=== PATIENT | female | born 1955 ===

== ENCOUNTER 2019-09-01 11:30 | Inpatient (IN) | payer OTHER ==
[~2019-09-01] VITALS: Ht 160 cm; Wt 90.7 kg
[2019-09-01] MEDS ORDERED: TENORMIN100 M1 PO (13:25)
[2019-09-01] MEDS ORDERED: CYMBALTA60 MG PO (13:25)
[2019-09-01] MEDS ORDERED: ENALAPRIL MALEA10 MG PO (13:25)
[2019-09-01] MEDS ORDERED: JANUVIA25 MG PO (13:26)
[2019-09-01] MEDS ORDERED: PLAVIX75 MG PO (13:26)
[2019-09-01] MEDS ORDERED: SIMVASTATIN40 MG PO (13:26)
[2019-09-01] MEDS ORDERED: LANTUS SOL100 UNIT/1 (13:27)
[2019-09-01] MEDS ORDERED: ULTRACET PO (13:27)
[2019-09-01] MEDS ORDERED: BAYER THERAPY325 MG PO (13:27)
[2019-09-07] MEDS ORDERED: METFORMIN HCL500 M4 PO (09:41)
[2019-09-07] MEDS ORDERED: JANUVIA50 MG PO (09:42)
[2019-09-07] MEDS ORDERED: SERTRALINE HCL50 MG PO (09:42)
[2019-09-07] MEDS ORDERED: DIAZEPAM10 MG PO (09:45)
[2019-09-09] MEDS ORDERED: BACTRIM DS TAB1 EACH PO (06:49)
[2019-09-09] MEDS ORDERED: INTEGRA PLUS C1 EACH PO (06:49)
[2019-09-09] MEDS ORDERED: XARELTO10 MG PO (06:49)
[2019-09-09] MEDS ORDERED: ULTRACET PO (06:49)
== END 2019-09-09 13:17 | DRG 470 ==
LOC: O/R 09-06 06:25 → SURG 09-06 06:25 → O/R 09-06 11:30 → SURG 09-06 22:12
PROVIDERS: ADMIT Orthopaedic Surgery Sports Medicine; ATTEND Orthopaedic Surgery Sports Medicine
PROC: 0SRD0J9 Replacement of Left Knee Joint with Synthetic Substitute, Cemented, Open Approach (ICD-10-PCS; principal; 2019-09-06 16:00)
DX: M17.12 Unilateral primary osteoarthritis, left knee (principal); I10 Essential (primary) hypertension; E13.9 Other specified diabetes mellitus without complications; Z96.652 Presence of left artificial knee joint